=== PATIENT | female | born 1950 | race Caucasian/White ===

== ENCOUNTER 2018-01-21 05:48 | Inpatient (IN) ==
[2018-01-21] MEDS ORDERED: HYDROmorphone PF Inj 1 MG/ML Ampul IV.PUSH PRN (06:46)
[2018-01-21] MEDS ORDERED: Post-op Orders (for Pharmacy) OTHER STA (06:46)
[2018-01-21] MEDS ORDERED: Bisacodyl 10 MG Supp RECTAL PRN (06:46)
[2018-01-21] MEDS ORDERED: Metoprolol Tartrate 25 MG Tablet PO SCH (07:15)
[2018-01-21] MEDS ORDERED: Chlorhexidine Gluconate 2% 1 Pack (2 Cloths) TOPICAL SCH (07:15)
[2018-01-21] MEDS ORDERED: Dexamethasone Inj 20 MG/5 ML Vial IV.PUSH ONE (07:16)
[2018-01-21] MEDS ORDERED: Sodium Chlor 0.9% Inj 73.07 ML, Ropivacaine 0.5% PF Inj 24.63 ML, Ketorolac Inj 30 MG, ... P-ARTICULR SCH ×5 (07:30)
[2018-01-21] MEDS ORDERED: Insulin NovoLIN Regular Correctional Sugar Inj SQ SCH (07:30)
[2018-01-21] MEDS ORDERED: Chlorhexidine 4% Topical 120 APPLIC/120 ML Bottle TOPICAL SCH (07:30)
[2018-01-21] MEDS ORDERED: Sodium Chlor 0.9% Inj 250 ML ONE (07:35)
[2018-01-21] MEDS ORDERED: Insulin NovoLIN Regular Correctional Sugar Inj ONE (07:36)
[2018-01-21] MEDS ORDERED: Bupivacaine PF 0.5% Inj 30 ML Vial ONE (07:38)
[2018-01-21] MEDS: Vancomycin Inj 1,000 MG in Sodium Chlor 0.9% Inj 250 ML IV.SIG SCH ×2 (07:58→09:22)
[2018-01-21] MEDS ORDERED: Sodium Chlor 0.9% Inj 500 ML IV.SIG SCH (08:00)
[2018-01-21] MEDS ORDERED: TRANEXAMIC ACID IV.SIG SCH (08:00)
[2018-01-21] MEDS ORDERED: ceFAZolin 2 GM Premix Inj 2 GM/100 ML BAG IV.SIG SCH (08:00)
[2018-01-21] MEDS ORDERED: SODIUM CHLOR 0.9% IV.SIG SCH (08:00)
[2018-01-21] MEDS ORDERED: Tranexamic Acid Inj 3,000 MG in Sodium Chlor 0.9% Inj 100 ML IV.SIG SCH (10:17)
[2018-01-21] MEDS ORDERED: Morphine Inj 4 MG/ML Vial ONE (11:46)
[2018-01-21] MEDS ORDERED: *morphine SULFATE 10 MG/ML PERIprocedure ONLY ONE (11:46)
[2018-01-21] MEDS ORDERED: fentaNYL Citrate Inj 100 MCG/2 ML Ampul ONE (11:47)
[2018-01-21] MEDS ORDERED: Metoprolol Inj 5 MG/5 ML Vial IV.PUSH ONE (12:00)
[2018-01-21] MEDS ORDERED: Neostigmine Inj 5 MG/5 ML Syringe IV.PUSH ONE (12:00)
[2018-01-21] MEDS ORDERED: Lidocaine PF 1% Inj 5 ML Syringe INFILTRATN ONE (12:00)
[2018-01-21] MEDS ORDERED: Glycopyrrolate Inj 1 MG/5 ML Syringe IV.PUSH ONE (12:00)
--- NOTE | 2018-01-21 12:09 | MP ---
cc: Emmanuel Gross MD DATE OF OPERATION: 01/21/2018 PREOPERATIVE DIAGNOSIS: Right knee osteoarthritis. POSTOPERATIVE DIAGNOSIS: Right knee osteoarthritis. PROCEDURE PERFORMED: Right total knee arthroplasty. SURGEON: Emmanuel Gross MD GREEN HIDE INSPECTOR: HEMA Liang. ANESTHESIA: General. ESTIMATED BLOOD LOSS: 100 mL COMPLICATIONS: None. TOURNIQUET TIME: 30 minutes at 250 mmHg. IMPLANTS: DePuy Attune size 5 posterior stabilized femoral component, size 4 rotating platform tibial baseplate, size 6 mm polyethylene tibial insert, size 35 patellar. JUSTIFICATION: This patient is a 68-year-old female with history of severe osteoarthritis involving the right knee. She has severe pain with standing, walking and severe pain at rest. She has failed greater than 3 months of nonoperative conservative treatment to include medication therapy, injections, ambulatory assist activity modification. The patient is not overweight. X-ray of the right knee revealed severe osteoarthritis with [id number] joint space narrowing, subchondral sclerosis, subchondral cyst, osteophyte formation with subluxation and deformity. The patient was counseled as to the risks, benefits and alternatives to a total knee arthroplasty. The risks were discussed which include, but are not limited to anesthesia, bleeding, infection, damage to nerves and blood vessels, pain, stiffness, failure of components, blood clots. patient's pain is severe. and wished to proceed with surgery. PROCEDURE IN DETAIL: Written consent was obtained. The patient was identified by name, taken to pursue Dashl. General anesthesia was administered, as well as 2 grams of IV Ancef and 1 gram IV vancomycin. A well-padded tourniquet was placed on the right thigh. The right lower extremity was prepped and draped using , Hibiclens solution and ChloraPrep solution. After timeout was performed, an Esmarch bandage was used to exsanguinate the left lower extremity. Tourniquet was inflated to 250 mmHg. A longitudinal incision was made over the anterior aspect of the right knee. A medial parapatellar arthrotomy was performed. The patella was everted. Patellar resection guide was used to resect 9 mm of the patella; the size 35 mm guide was placed. Three drill holes were placed, the 35 mm trial fit well. Attention was turned to the femur where an intramedullary guide was placed and the distal femoral guide was set to remove 10 mm of distal femur, 5 degrees off the used to perform the distal femoral cut. Attention was turned to the tibia where an extramedullary tibial guide was set to remove 6 mm of was performed. A 5 mm full extension. Attention was turned back to the femur. The AP sizing block measured a size 5. The anterior reference 3-degree external rotation guide was used to pin a size [address] Anterior, posterior chamfer cuts performed with an oscillating saw. The medial and lateral meniscus remnants were removed, as well as bone and soft tissue debris from the posterior portion of the knee. A size 4 tibial base was pinned in place and with the correct components, the leg could achieve full extension degrees and flexion to 140. No evidence of tibial liftoff. Varus valgus balance appeared appropriate and symmetric and the patella was noted to track centrally. With the tourniquet deflated, Bovie cautery was used for hemostasis. The knee was thoroughly irrigated with sterile saline antibiotic impregnated solution. The arthrotomy incision was closed with #1 Vicryl suture, subcuticular 2-0 Vicryl suture. Skin was closed with Dermabond. Sterile dressing applied. The patient tolerated the procedure with no intraoperative complications noted. Masoud Peterson, Physician Driver License Reviewing Officer, Certified was present during the entire procedure physician dermatology physician assistant was indicated in this case due to the complexity of the procedure structures. He assisted with preparation and also implantation of the prosthetic replacement. Emmanuel Gross MD JWJorge L/jorge/cedric , 11:15 AM , 11:23 AM
[2018-01-21] MEDS ORDERED: Dextrose 50% in Water 50 ML Vial IV.PUSH PRN (12:29)
--- NOTE | 2018-01-21 12:45 | P.CONIM ---
History of Present Illness Consult date: 01/21/18 Primary Care Provider: UNKNOWN Chief Complaint: Medical management History of Present Illness: The patient is a 68-year-old female with past medical history of diabetes and osteoarthritis who is presenting to the hospital for elective right knee replacement. The patient says that she has had severe knee pain and has only been taking Tylenol at home for that. She has been ambulating without a cane or a walker. She has been following with orthopedic surgery as an outpatient. She was seen in the PACU following surgery. She denied any pain. She did complain of dry mouth. She says she normally has an insulin pump that she uses but that is currently off. She plans on starting the insulin pump again later on. She says she has been having regular bowel movements. She says she has been losing weight intentionally as she is on a diet. Review of Systems All other systems reviewed negative except as stated in HPI PMFSH - History History Provided By: Patient - Medical History Medical History: Medical History (Last Updated 01/21/18 @ 12:40 by Alvino Calvo DO) History of cirrhosis of liver Thrombocytopenia Arthritis Back pain Diabetes GERD (gastroesophageal reflux disease) High cholesterol History of anesthesia reaction History of broken collarbone Hypertension Hypothyroidism Joint pain Wears glasses - Surgical History Surgical History: Surgical History (Last Updated 01/21/18 @ 12:41 by Alvino Calvo DO) H/O foot surgery History of back surgery History of tubal ligation History of Achilles tendon repair History of cholecystectomy - Family History Family History: Family History (Last Updated 01/21/18 @ 12:42 by Alvino Calvo DO) Other Diabetes Lung cancer - Tobacco History Second Hand Smoke Exposure: No Tobacco Use In Past 30 Days: No Smoking Status: Former smoker - Alcohol History How Often Do You Have a Drink Containing Alcohol: Never - Substance Use History Substance History: No History of Abuse - Travel History Recent Travel in the [place] Within the Last 8 Weeks: No Recent Travel Out of the Country Within the Last 8 Weeks: No Medications and Allergies Active Medications: Active Medications Hydrocodone Bitart/Acetaminophen ([place] 7.5/325) 1 tab PO Q4H PRN PRN Reason: PAIN LESS THAN 5 ON SCALE Hydrocodone Bitart/Acetaminophen ([place] 7.5/325) 2 tab PO Q6H PRN PRN Reason: PAIN SCALE 5 TO 10 Al Hydroxide/Mg Hydroxide (Milk Of Magnesia Liq) 30 ml PO BID PRN PRN Reason: Mild Constipation Aspirin (Aspirin Chew) 81 mg PO BID [facility] Atenolol (Tenormin) 100 mg PO DAILY [facility] Bisacodyl (Dulcolax Supp) 10 mg RECTAL DAILY PRN PRN Reason: SEVERE CONSITIPATION Chlorhexidine Gluconate (Chlorhexidine 2% Cloth) 3 pack TOPICAL ASSOCIATE PROFESSOR OF THEATRE [facility] Stop: 01/24/18 07:03 Last Admin: 01/21/18 06:00 Dose: 3 pack Chlorhexidine Gluconate (Hibiclens 4% Topical) 1 applicatio TOPICAL ONCE [facility] Stop: 01/25/18 07:29 Sodium Chloride 73.07 ml/Ropivacaine 24.63 ml/Ketorolac Tromethamine 30 mg/ Epinephrine HCl 0.5 mg/cloNIDine PF Inj 80 mcg 0 ml P-ARTICULR ONCE [facility] Dextrose (D50w Vial) 50 ml IV.PUSH UNSCH PRN PRN Reason: PER HYPOGLYCEMIA PROTOCOL Diphenhydramine HCl (Benadryl) 25 mg PO Q6H PRN PRN Reason: ITCHING Enalapril Maleate (Vasotec) 5 mg PO HS [facility] Enalapril Maleate (Vasotec) 10 mg PO DAILY [facility] Gabapentin (Neurontin) 300 mg PO HS [facility] Glucagon (Glucagon Inj) 1 mg OTHER PRN PRN PRN Reason: for Hypoglycemia Protocol Hydromorphone HCl (Dilaudid Pf Inj) 1 mg IV.PUSH Q3H PRN PRN Reason: BREAKTHROUGH PAIN Cefazolin/Sodium Chloride (Ancef 2 Gm Premix Inj) 2 gm in 100 mls @ 200 mls/hr IV.SIG Q6H [facility] Stop: 01/22/18 04:29 Lactated Ringer's (Lr 1000 Ml Inj) 1,000 mls @ 80 mls/hr IV.CONT .[id number] [facility] Lactated Ringer's (Lr 1000 Ml Inj) 1,000 mls @ 30 mls/hr IV.SIG .Q24H [facility] Stop: 01/24/18 07:03 Last Admin: 01/21/18 06:30 Dose: 30 mls/hr Sodium Chloride (Ns Inj) 500 mls @ 30 mls/hr IV.SIG .Q10H [facility] Stop: 01/24/18 07:03 Cefazolin/Sodium Chloride (Ancef 2 Gm Premix Inj) 2 gm in 100 mls @ 200 mls/hr IV.SIG ONCE [facility] Stop: 01/21/18 21:00 Last Infusion: 01/21/18 10:17 Dose: Infused Tranexamic Acid 1,253 mg/ (Sodium Chloride) 112.53 mls @ 200 mls/hr IV.SIG ONCE [facility] Stop: 01/22/18 07:59 Last Infusion: 01/21/18 10:24 Dose: Infused Tranexamic Acid 3,000 mg/ (Sodium Chloride) 130 mls @ 200 mls/hr IV.SIG ONCE [facility] Stop: 01/22/18 10:16 Vancomycin HCl 1,000 mg/ (Sodium Chloride) 250 mls @ 250 mls/hr IV.SIG ASSOCIATE PROFESSOR OF THEATRE [facility] Stop: 01/24/18 07:16 Last Infusion: 01/21/18 10:22 Dose: Infused Insulin Aspart (Novolog Insulin Correctional Sugar Inj) 0 unit SQ ACHS [facility]; Protocol Insulin Human Regular (Novolin R Correctional Sugar Inj) 0 units SQ ASSOCIATE PROFESSOR OF THEATRE [facility] ; Protocol Stop: 01/24/18 07:25 Last Admin: 01/21/18 07:30 Dose: 4 units Latanoprost (Xalatan 0.005% Opth Drops) drop EACH EYE QPM [facility] Levothyroxine Sodium (Synthroid) 50 mcg PO DAILY [facility] Metoprolol Tartrate (Lopressor) 25 mg PO ASSOCIATE PROFESSOR OF [employer]ATRE [facility] Stop: 01/24/18 07:03 Last Admin: 01/21/18 08:09 Dose: Not Given Multivitamins/Minerals (Theragran-M) 1 tab PO BID [facility] Stop: 03/22/18 08:59 Non-Formulary Medication (Omeprazole [Omeprazole]) 40 mg PO DAILY [facility] Non-Formulary Medication (Simvastatin [Simvastatin]) 40 mg PO QPM [facility] Non-Formulary Medication (Estradiol [Vagifem]) 10 mcg VAGINAL EVERY OTHER DAY [facility] Ondansetron HCl (Zofran Inj) 4 mg IV.PUSH Q6H PRN PRN Reason: NAUSEA OR VOMITING Povidone Iodine (Betadine 5% Antisepsis Kit) 1 applicatio EACH NARE ASSOCIATE PROFESSOR OF THEATRE [facility] Stop: 01/24/18 07:03 Last Admin: 01/21/18 06:45 Dose: 1 applicatio Povidone Iodine (Betadine 7.5% Scrub) 1 applicatio TOPICAL ONCE [facility] Stop: 01/25/18 07:59 Senna/Docusate Sodium (Dinah-Colace) 1 tab PO BID [facility] Sennosides (Senokot) 17.2 mg PO BID PRN PRN Reason: Moderate Constipation Sodium Chloride (Ns Flush) 2 ml IV.FLUSH PRN PRN PRN Reason: FLUSH AFTER USING IV ACCESS Sodium Chloride (Ns Flush) 2 ml IV.FLUSH BID [facility] Zolpidem Tartrate (Ambien) 5 mg PO HS PRN PRN Reason: INSOMNIA Allergies Allergy/AdvReac Type Severity Reaction Status Date / Time codeine Allergy Rash Verified 01/21/18 06:47 Home Medications Medication Instructions Recorded Confirmed Type atenolol 100 mg PO DAILY 01/07/18 01/21/18 History enalapril maleate 5 mg PO HS 01/07/18 01/21/18 History enalapril maleate 10 mg PO DAILY 01/07/18 01/21/18 History estradiol [Vagifem] 10 mcg VAGINAL EVERY OTHER DAY 01/07/18 01/21/18 History gabapentin 300 mg PO HS 01/07/18 01/21/18 History insulin lispro [Humalog U-100 1 sliding scale dose SUB-Q UD 01/07/18 01/21/18 History Insulin] latanoprost 1 drp OPHTHALMIC (EYE) QPM 01/07/18 01/21/18 History levothyroxine 50 mcg PO DAILY 01/07/18 01/21/18 History omeprazole 40 mg PO DAILY 01/07/18 01/21/18 History simvastatin 40 mg PO QPM 01/07/18 01/21/18 History Exam Vital signs: Vital Signs 01/21/18 07:12 01/21/18 07:43 Temperature 98.7 F Pulse Rate 71 65 Blood Pressure 147/78 H Pulse Oximetry 96 99 Intake & Output 01/20/18 01/21/18 01/21/18 18:59 06:59 18:59 Intake Total 462.53 / 462.53 Balance 462.53 / 462.53 Weight 83.5 kg Intake: IV 462.53 / 462.53 Cyklokapron Inj 1,253 MG In NS 112.53 / 112.53 Inj 100 ML @ 200 mls/hr IV.SIG ONCE [facility] Rx#:[id number] Vancomycin Inj 1,000 MG In NS 250 / 250 Inj 250 ML @ 250 mls/hr IV.SIG ASSOCIATE PROFESSOR OF THEATRE [facility] Rx#:[id number] Ancef 2 GM Premix Inj 2 gm In 100 / 100 100 ml @ 200 mls/hr IV.SIG ONCE [facility] Rx#:[id number] Other: Weight On Admission 83.5 kg Narrative: General: NAD HEENT: NC, AT Pulmonary: CTAB Cardiac: RRR GI: Soft, NT, ND Extremities: Right leg is bandaged with mild edema Neuro: No gross deficits Results - Labs Labs: Laboratory Results - last 24 hr 01/21/18 01/21/18 01/21/18 06:47 06:50 12:29 POC Glucose 217 H 272 H Blood Type A Positive Blood Type Recheck Antibody Screen Negative Assessment and Plan - Plan Osteoarthritis S/p right knee arthroplasty 01/21/18. -wound care, weightbearing and anticoagulation per surgery. -rehab efforts. -pain control with a bowel regimen. -incentive spirometry. -follow CBC. DM On an insulin pump. -insulin sliding scale for now and resume home insulin pump when able. HTN Blood pressure exacerbated by pain. -pain control. -resume home meds. -clonidine as needed. Thrombocytopenia S/t fatty liver. She follows with hematology as an outpt. -CBC in am. -outpt follow-up as scheduled. PPx: Per surgery
--- NOTE | 2018-01-21 12:54 | XR ---
EXAM DATE: 01/21/2018 12:29 PM EDT AGE/SEX: 68 years / Female INDICATIONS: Post op right knee replacement CLINICAL DATA: This is the patient's initial encounter. Patient reports that signs and symptoms have been present for 1 day and indicates a pain score of Nonresponsive. MEDICAL/SURGICAL HISTORY: Non-responsive. Non-responsive. COMPARISON: No prior exams available for comparison. FINDINGS: Frontal and lateral views of the right knee following recent knee arthroplasty demonstrates a metalli c hardware at the distal femur and proximal tibia with radiolucent patellar component. Soft tissue ai r is present, as expected. No joint effusion is seen. No unexpected findings are identified. CONCLUSION: Expected changes are present following recent right total knee arthroplasty, as above. Electronically signed by: Adolph Moreno MD 01/21/2018 12:52 PM EDT
[2018-01-21] MEDS: Senna/Docusate Sodium 8.6/50 MG Tablet PO SCH ×2 (13:37→22:04)
[2018-01-21] MEDS: Multivitamin/Minerals Therapeutic Tablet PO SCH ×2 (13:37→22:04)
[2018-01-21] MEDS ORDERED: Latanoprost 0.005% Opth Drops 2.5 ML Bottle EACH EYE SCH (21:00)
[2018-01-21] MEDS ORDERED: Gabapentin 300 MG Capsule PO SCH (21:00)
[2018-01-21] MEDS ORDERED: Zolpidem Tartrate 5 MG Tablet PO PRN (21:00)
[2018-01-21] MEDS: ceFAZolin 2 GM Premix Inj 2 GM/100 ML BAG IV.SIG SCH (22:13)
[2018-01-22] MEDS: ceFAZolin 2 GM Premix Inj 2 GM/100 ML BAG IV.SIG SCH ×2 (00:23→06:24)
[2018-01-22] MEDS: Insulin NovoLOG Aspart Correctional Sugar Inj SQ SCH ×3 (04:38→10:17)
[2018-01-22] MEDS ORDERED: Levothyroxine 50 MCG Tablet PO SCH (06:00)
[2018-01-22 06:24] LABS: Mean Corpuscular HGB Conc 34.7 % (32.0-36.0); Mean Corpuscular Hemoglobin 34.4 pg (27.0-34.0); Mean Corpuscular Volume 99.1 fL (80.0-100.0); Mean Platelet Volume 7.9 fL (7.0-11.0); Platelet Count 73 th/mm3 (150-450); Red Blood Count 2.62 mil/mm3 (4.00-5.30); Red Cell Distribution Width 12.6 % (11.6-17.2)
[2018-01-22 06:48] LABS: Calcium 7.9 mg/dL (8.5-10.1); Carbon Dioxide 20.6 meq/L (21.0-32.0); Potassium 4.8 meq/L (3.5-5.1)
--- NOTE | 2018-01-22 07:14 | P.PNOP ---
Subjective Interval history: pain controlled. Physical Exam Vital signs: Vital Signs 01/21/18 07:43 01/21/18 11:39 01/21/18 11:45 Temperature 98.2 F Pulse Rate 65 78 68 Respiratory Rate 16 16 Blood Pressure 150/76 H 152/73 H Pulse Oximetry 99 100 98 01/21/18 12:00 01/21/18 12:15 01/21/18 12:30 Temperature Pulse Rate 64 60 56 L Respiratory Rate 16 16 16 Blood Pressure 147/67 H 144/76 H 136/65 Pulse Oximetry 98 100 98 01/21/18 13:00 01/21/18 13:30 01/21/18 14:00 Temperature Pulse Rate 54 L 54 L 54 L Respiratory Rate 16 16 16 Blood Pressure 127/68 123/64 118/65 Pulse Oximetry 99 99 99 01/21/18 15:34 01/21/18 16:00 01/21/18 20:00 Temperature 97.6 F 98.3 F Pulse Rate 52 L Respiratory Rate 18 20 Blood Pressure 97/63 L 102/58 L Pulse Oximetry 99 100 Intake & Output 01/21/18 01/22/18 01/22/18 18:59 06:59 18:59 Intake Total 2862.53 / 2862.53 1100 / 1100 Output Total 400 / 400 Balance 2462.53 / 2462.53 1100 / 1100 Weight 83.5 kg Intake: IV 462.53 / 462.53 1100 / 1100 LR 1000 mL Inj 1,000 ML @ 80 1000 / 1000 mls/hr IV.CONT .[id number] [facility] Rx# :[id number] Cyklokapron Inj 1,253 MG In NS 112.53 / 112.53 Inj 100 ML @ 200 mls/hr IV.SIG ONCE [facility] Rx#:[id number] Vancomycin Inj 1,000 MG In NS 250 / 250 Inj 250 ML @ 250 mls/hr IV.SIG CUE WORKER [facility] Rx#:[id number] Ancef 2 GM Premix Inj 2 gm In 100 / 100 100 / 100 100 ml @ 200 mls/hr IV.SIG Q6H [facility] Rx#:[id number] Anesthesia Amount 2400 / 2400 Output: Estimated Blood Loss 400 / 400 Other: Weight On Admission 83.5 kg Narrative: in bed, nad, using cpm dressing c/d/i neg homans nvi Results - Labs CBC & Chem 7: 08/28/18 05:33 01/22/18 05:33 Laboratory Results - last 24 hr 01/21/18 01/21/18 01/22/18 06:50 12:29 05:33 WBC RBC Hgb Hct MCV MCH MCHC RDW Plt Count MPV Sodium 135 L Potassium 4.8 Chloride 102 Carbon Dioxide 20.6 L Anion Gap 12 BUN 34 H Creatinine 1.44 H Estimated GFR 36 L POC Glucose 272 H Random Glucose 161 H Calcium 7.9 L Blood Type A Positive Blood Type Recheck Antibody Screen Negative 01/22/18 05:33 WBC 6.0 RBC 2.62 L Hgb 9.0 L Hct 26.0 L MCV 99.1 MCH 34.4 H MCHC 34.7 RDW 12.6 Plt Count 73 L MPV 7.9 Sodium Potassium Chloride Carbon Dioxide Anion Gap BUN Creatinine Estimated GFR POC Glucose Random Glucose Calcium Blood Type Blood Type Recheck Antibody Screen - Imaging Impressions Knee X-Ray 01/21/18 06:43 CONCLUSION: Expected changes are present following recent right total knee arthroplasty, as above. Assessment and Plan - Ortho Post Op Day # 1 - Assessment and Plan s/p R TKA wbat ok to maintain dressing unless saturated asa 81 d/c planning home with hhc and pt - cleared today if does well in PT f/up dr. smith 2 weeks
--- NOTE | 2018-01-22 07:21 | P.DCO ---
- Physical Therapy Physical Therapy: Gait training, Safety evaluation, Transfer training, bed to chair Knee: Total knee, Protocol: Right, Full weight bearing Right Lower Extremity Weight Bearing: Weight bearing as tolerated - Nursing RN: 3 days/week x 2 weeks Nursing: Dressing changes Dressing changes: Daily dressing change - Certification Need for Home Health services: I have seen patient Kelly Gilliam on 01/22/18. My clinical findings support the need for the requested home health care services because: Need for Home Health Services: Limited ability to care for self, High risk of falls Homebound Certification: I certify that my clinical findings support that this patient is homebound because: Homebound Certification: Post-op weakness, Unsafe to leave home unassisted
[2018-01-22] MEDS ORDERED: Atenolol 100 MG Tablet PO SCH (09:00)
[2018-01-22 09:39] VITALS: RESP 16
--- NOTE | 2018-01-22 09:42 | P.PN ---
Subjective Interval history: Patient is seen sitting up in chair. She has just worked with physical therapy. Reports that she is doing well and is looking forward to going home. Denies any chest pain or shortness of breath. No nausea vomiting or diarrhea. She is tolerating her meals well with normal urination and bowel movements. Physical Exam Vital signs: Vital Signs 01/21/18 11:39 01/21/18 11:45 01/21/18 12:00 Temperature 98.2 F Pulse Rate 78 68 64 Respiratory Rate 16 16 16 Blood Pressure 150/76 H 152/73 H 147/67 H Pulse Oximetry 100 98 98 01/21/18 12:15 01/21/18 12:30 01/21/18 13:00 Temperature Pulse Rate 60 56 L 54 L Respiratory Rate 16 16 16 Blood Pressure 144/76 H 136/65 127/68 Pulse Oximetry 100 98 99 01/21/18 13:30 01/21/18 14:00 01/21/18 15:34 Temperature Pulse Rate 54 L 54 L Respiratory Rate 16 16 Blood Pressure 123/64 118/65 Pulse Oximetry 99 99 99 01/21/18 16:00 01/21/18 20:00 Temperature 97.6 F 98.3 F Pulse Rate 52 L Respiratory Rate 18 20 Blood Pressure 97/63 L 102/58 L Pulse Oximetry 100 Intake & Output 01/21/18 01/22/18 01/22/18 18:59 06:59 18:59 Intake Total 2862.53 / 2862.53 2450 / 2450 100 / 100 Output Total 400 / 400 Balance 2462.53 / 2462.53 2450 / 2450 100 / 100 Weight 83.5 kg 101.2 kg Intake: IV 462.53 / 462.53 1100 / 1100 100 / 100 LR 1000 mL Inj 1,000 ML @ 80 1000 / 1000 mls/hr IV.CONT .[id number] [facility] Rx# :[id number] Cyklokapron Inj 1,253 MG In NS 112.53 / 112.53 Inj 100 ML @ 200 mls/hr IV.SIG ONCE [facility] Rx#:[id number] Vancomycin Inj 1,000 MG In NS 250 / 250 Inj 250 ML @ 250 mls/hr IV.SIG BUNGY JUMP MASTER [facility] Rx#:[id number] Ancef 2 GM Premix Inj 2 gm In 100 / 100 100 / 100 100 / 100 100 ml @ 200 mls/hr IV.SIG Q6H [facility] Rx#:[id number] Oral 1350 / 1350 Anesthesia Amount 2400 / 2400 Output: Estimated Blood Loss 400 / 400 Other: # Voids 4 Weight On Admission 83.5 kg Narrative: GENERAL: Well-nourished, well-developed adult female in no obvious distress. SKIN: Warm and dry. HEAD: Atraumatic. Normocephalic. CARDIOVASCULAR: Regular rate and rhythm. RESPIRATORY: No accessory muscle use. Clear to auscultation. Breath sounds equal bilaterally. GASTROINTESTINAL: Abdomen soft, non-tender, distended. Positive bowel sounds. MUSCULOSKELETAL: Right knee has gauze dressing with no drainage. No swelling. Both extremities well perfused. NEUROLOGICAL: Awake and alert. No obvious cranial nerve deficits. Motor grossly within normal limits. Normal speech. Results - Labs CBC & Chem 7: 01/22/18 05:33 01/22/18 05:33 Laboratory Results - last 24 hr 01/21/18 01/22/18 01/22/18 12:29 05:33 05:33 WBC 6.0 RBC 2.62 L Hgb 9.0 L Hct 26.0 L MCV 99.1 MCH 34.4 H MCHC 34.7 RDW 12.6 Plt Count 73 L MPV 7.9 Sodium 135 L Potassium 4.8 Chloride 102 Carbon Dioxide 20.6 L Anion Gap 12 BUN 34 H Creatinine 1.44 H Estimated GFR 36 L POC Glucose 272 H Random Glucose 161 H Calcium 7.9 L - Imaging Impressions Knee X-Ray 01/21/18 06:43 CONCLUSION: Expected changes are present following recent right total knee arthroplasty, as above. Assessment and Plan - Plan Osteoarthritis S/p right knee arthroplasty 01/21/18. -wound care, weightbearing and anticoagulation per surgery. -rehab efforts. -pain control with a bowel regimen. -incentive spirometry. -follow CBC. DM On an insulin pump. -insulin sliding scale for now and resume home insulin pump when able. HTN Blood pressure exacerbated by pain. -pain control. -resume home meds. -clonidine as needed. Thrombocytopenia S/t fatty liver. She follows with hematology as an outpt. -CBC in am. -outpt follow-up as scheduled. PPx: Per surgery Discussed with: Patient and nurse. Discharge planning: Per orthopedics. Patient appears medically stable at this time.
[2018-01-22] MEDS ORDERED: ceFAZolin 2 GM Premix Inj 2 GM/100 ML BAG IV.SIG SCH (10:00)
[2018-01-22] MEDS: Multivitamin/Minerals Therapeutic Tablet PO SCH (10:18)
[2018-01-22] MEDS: Senna/Docusate Sodium 8.6/50 MG Tablet PO SCH (10:18)
[2018-01-22 12:14] VITALS: BP 118/59; PULSE 76; TEMP 98.5; O2SAT 97
--- NOTE | 2018-02-06 15:06 | MD ---
cc: Emmanuel Gross MD DATE OF DISCHARGE: 01/22/2018 ADMITTING DIAGNOSIS: Severe degenerative osteoarthritis, right knee. DISCHARGE DIAGNOSIS: Severe degenerative osteoarthritis, right knee. HISTORY OF PRESENT ILLNESS: Ms. Gilliam is a 68-year-old female who is a longstanding patient of Dr. [facility]. She is being treated for severe and progressive right knee pain, which is inhibiting her activities of daily living. She states the pain is a severe aching sensation with any type of weightbearing activity. She has no alleviating factors. In the past, she has tried medications, bracing, assistive devices, physical therapy, home exercises as well as corticosteroid injection without long lasting relief of symptoms. She does have x-ray evidence of severe degenerative osteoarthritis of the right knee. While in the office, the patient was counseled on her diagnosis and treatment options. Risks, benefits, and indications were discussed. Patient elected to proceed with surgical intervention to include a right total knee arthroplasty. Date of Surgery: 01/21/2018, right total knee arthroplasty. POSTOP: After surgery, the patient was admitted to [facility] where she received appropriate medical management, pain control, DVT prophylaxis, as well as physical therapy. DISCHARGE: Once being discharged from the hospital, but the patient is cleared to go home where she will receive home health care and home physical therapy. She is in stable condition. She may weight bear as tolerated. She has been instructed on wound care management. She has been provided prescriptions for pain control and DVT prophylaxis medication. She has also been provided a followup appointment in approximately 2 weeks from her date of surgery. The patient has asked appropriate questions, which have been answered. The patient has been discharged. Dictated by HEMA Silva Emmanuel Gross MD JWM/jorge , 12:13 PM , 12:18 PM
== END 2018-01-22 14:36 | disposition home health service (06) ==
LOC: HSDI 05:48 → N06 14:53
PROVIDERS: ADMIT Orthopaedic Surgery Sports Medicine; ATTEND Orthopaedic Surgery Sports Medicine